=== PATIENT | male | born 2000 | race Caucasian/White ===

== ENCOUNTER 2019-11-11 22:16 | Emergency (ER) | payer BC, SELFPAY ==
[2019-11-11 22:33] VITALS: BP 130/83; PULSE 72; RESP 20; TEMP 36.9; O2SAT 100
--- NOTE | 2019-11-11 22:43 | ED.WOUNDLAC ---
HPI - Wound/Laceration General Chief Complaint: Wound/Laceration Stated Complaint: laceration on R hand Source: patient Mode of arrival: ambulatory Limitations: no limitations History of Present Illness HPI narrative: Patient presents with some laceration to his right 5th some anterior finger approximately 1.5cm in length non gaping well-approximated currently no bleeding occurred earlier today while he was feeding is hamster in the hamster tried to pull his hand and away and caught on glass the fish tank causing a laceration to his hand, 5th finger on his right hand Onset (ago): hour(s) Location: other (right 5th finger) Place: home Patient tetanus UTD: Yes Context: accidental Associated symptoms: none Related Data Home Medications Medication Instructions Recorded Confirmed No Home Medications 11/11/19 11/11/19 Allergies Allergy/AdvReac Type Severity Reaction Status Date / Time No Known Allergies Allergy Verified 11/11/19 22:46 Review of Systems Review of Systems: All systems reviewed & are unremarkable except as noted in HPI and below PMFSH Past Medical History Medical History Patient denies medical problems Exam Const: General: no acute distress and alert Orientation/consciousness: patient oriented x3 HENMT: Head: normal to inspection Eyes: Conjunctivae: conjunctivae normal Pupils: Equal, round and reactive pupils present Neck: Neck: normal visual inspection and no lymphadenopathy Chest: Chest palpation & inspection: normal inspection of the chest Resp: Effort & Inspection: normal respiratory effort Auscultation: clear to auscultation bilaterally Cardio: Rate: regular rate Rhythm: regular rhythm GI: GI Palp: Yes Soft to palpation Skin: Other: 1 1/2 cm lac well approximated his right 5th anterior finger Extrem: Right lower extremity: normal to inspection Course Vital Signs Vital signs: Vital Signs Temperature 36.9 C 11/11/19 22:33 Pulse Rate 72 11/11/19 22:33 Respiratory Rate 20 11/11/19 22:33 Blood Pressure 130/83 11/11/19 22:33 Pulse Oximetry 100 11/11/19 22:33 Temperature 36.9 C 11/11/19 22:33 Pulse Rate 72 11/11/19 22:33 Respiratory Rate 20 11/11/19 22:33 Blood Pressure 130/83 11/11/19 22:33 Pulse Oximetry 100 11/11/19 22:33 Procedures Laceration Laceration 1: Date: 11/11/19 Time: 22:47 Site: hand Side (If applicable): right Size (cm): 1.5 Description: linear ====== Skin Level ====== Skin layer closed with: dermabond ====== Subcutaneous Layer ====== ====== Muscle Layer ====== ====== Tendon Layer ====== Critical Care Time Critical Care Time Critical Care Time: No Discharge Plan Discharge Clinical Impression: Laceration Patient Disposition: Home, Self-Care Condition: Stable Instructions: Antibiotic Form, Skin Adhesive Care (ED) Additional Instructions: follow-up with primary care physician if symptoms persist or worsen. Prescriptions: No Action No Home Medications RF: 0 Follow-up/Referrals: Ortega,Bandar Juarez MD [Primary Care Provider] - Time of Disposition: 22:48
[2019-11-11 22:48] VITALS: RESP 14
== END 2019-11-11 22:55 | disposition home or self-care (01) ==
PROVIDERS: Emergency Provider Emergency Medicine; PCP Family Medicine
DX: S61.411A Laceration without foreign body of right hand, initial encounter (principal); W25.XXXA Contact with sharp glass, initial encounter
CPT/HCPCS: 12001; 99282

== ENCOUNTER 2020-05-23 20:37 | Emergency (ER) | payer SELFPAY ==
--- NOTE | ~2020-05-23 | CT_ITS ---
EXAMINATION: CT brain wo con DATE: 05/23/2020 21:51 INDICATION: Headache, altered sensorium. Generalized headache. Right forehead laceration. TECHNIQUE: Computed tomography (CT) of the head was performed without intravenous contrast. The mA wa s adjusted according to patient size. Iterative reconstruction technique was employed. Exam dose: 60 5.33 mGy-cm total exam DLP. COMPARISON: 02/18/2012 CT head FINDINGS: No intracranial mass lesion or hemorrhage or cerebrovascular accident. No midline shift or mass effect. Normal ventricular size. No subdural or epidural hematoma. No fracture or bone destruction of the cranial vault. There is mild mucoperiosteal thickening of the left and right sphenoid sinuses and patchy opacificati on of ethmoid air cells bilaterally. Included mastoid air cells and paranasal sinuses are otherwise u nremarkable. IMPRESSION: Soft tissue thickening of the sphenoid and ethmoid sinuses No significant intracranial abnormality Reviewed, dictated and finalized at [facility] Reviewed, dictated and finalized at [facility] [employer] [employer]
[2020-05-23 20:37] VITALS: BP 137/90; PULSE 65; RESP 16; TEMP 36.9; O2SAT 100
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
--- NOTE | 2020-05-23 21:46 | PC.NURSE ---
PT REFUSED ORDERED TYLENOL, STATES HE HAS 0 PAIN
[2020-05-23 22:25] VITALS: BP 120/71; PULSE 64; RESP 15; O2SAT 100
== END 2020-05-23 22:28 | disposition home or self-care (01) ==
PROVIDERS: Emergency Provider Emergency Medicine; PCP Family Medicine
DX: S01.81XA Laceration without foreign body of other part of head, initial encounter (principal); V89.2XXA Person injured in unspecified motor-vehicle accident, traffic, initial encounter
CPT/HCPCS: 70450; 99282; 99284

== ENCOUNTER 2022-10-02 14:56 | Emergency (ER) | payer OTHER, SELFPAY ==
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
[2022-10-02 14:56] VITALS: BP 126/86; PULSE 82; RESP 16; TEMP 37.1; O2SAT 100
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
[2022-10-02 16:10] VITALS: BP 118/67; PULSE 65; RESP 16; TEMP 36.8; O2SAT 98
== END 2022-10-02 16:25 | disposition home or self-care (01) ==
PROVIDERS: Emergency Provider Internal Medicine Critical Care Medicine; PCP Family Medicine
DX: S73.102A Unspecified sprain of left hip, initial encounter (principal); V59.50XA Passenger in pick-up truck or van injured in collision with unspecified motor vehicles in traffic accident, initial encounter; Y92.410 Unspecified street and highway as the place of occurrence of the external cause
CPT/HCPCS: 73502; 99283

== ENCOUNTER 2024-09-10 12:16 | Emergency (ER) | payer SELFPAY ==
[2024-09-10 12:16] VITALS: BP 146/77; PULSE 86; RESP 18; TEMP 36.9; O2SAT 99
--- NOTE | 2024-09-10 12:21 | ED.URI ---
HPI - URI/Sore Throat General Chief Complaint: Upper Respiratory Infection Stated Complaint: uri Time Seen by Provider: 09/10/24 12:18 Source: patient Mode of arrival: ambulatory Limitations: no limitations History of Present Illness HPI Narrative: patient is a 24-year-old male with a continuous cough and recurrent chest congestion with some chest pains and shortness of breath over the past 2 weeks. He is concerned about having pneumonia. His father recently had pneumonia. MD elicited complaint: cough and other ( Chest congestion) Pertinent past history: other ( none) Onset (ago): week(s) ( 2) Consistency: constant Severity: mild Pain scale (0-10): 2 Description of mucous: clear Able to tolerate fluids by mouth: Yes Exacerbating factors: nothing Relieving factors: nothing Context: sick contacts Associated symptoms: cough, chest pain and shortness of breath Treatments prior to arrival: none Related Data Allergies Allergy/AdvReac Type Severity Reaction Status Date / Time No Known Allergies Allergy Verified 09/10/24 12:51 Review of Systems Review of Systems: All systems reviewed & are unremarkable except as noted in HPI and below Constitutional: Constitutional: Reports no additional constitutional complaints Eyes: Eyes: Reports no additional eye complaints ENT: Reports system reviewed and no additional complaints, except as documented Cardiovascular: Cardiovascular: Reports no additional cardiovascular complaints Respiratory: Respiratory: Reports no additional respiratory complaints Gastrointestinal: Gastrointestinal: Reports no additional gastrointestinal complaints Genitourinary: Genitourinary: Reports no additional male genitourinary complaints Musculoskeletal: Musculoskeletal: Reports no additional musculoskeletal complaints Integumentary/Breasts: Skin/Breast: Reports system reviewed and no additional complaints, except as docu Neurologic: Reports system reviewed and no additional complaints, except as documented Psychiatric: Psychiatric: Reports no additional psychiatric complaints Endocrine: Endocrine: Reports no additional endocrine complaints Hematologic/Lymphatic: Hematologic/Lymphatic: Reports no additional hematologic/lymphatic complaints Allergic/Immunologic: Allergic/Immunologic: Reports no additional allergic/immunologic complaints PMFSH Past Medical History Medical History Patient denies medical problems Exam Const: General: healthy appearing Nutritional Appearance: well nourished Orientation/consciousness: patient oriented x3 HENMT: Head: normal to inspection Ears: external ears normal Face/Nose/Sinus: Normal external nose present Eyes: Conjunctivae: conjunctivae normal Pupils: Equal, round and reactive pupils present EOM: EOMs intact bilaterally Neck: Neck: normal visual inspection Chest: Chest palpation & inspection: normal inspection of the chest Resp: Effort & Inspection: normal respiratory effort, not labored, no retractions, not tachypneic and no use of accessory muscles Auscultation: clear to auscultation bilaterally, no crackles, no rales, no rhonchi, no wheezes, breath sounds present and lung sounds not diminished Cardio: Rate: regular rate Rhythm: regular rhythm Heart sounds: no murmurs GI: Inspection: non-distended GI Palp: Yes Soft to palpation and No Tenderness to palpation present (GI) Auscultation: normal bowel sounds : General: Yes bladder normal to palpation Back/Spine/Pelvis: Back: no CVA tenderness Skin: General skin exam: normal color Rashes: no rashes Wounds: no wounds Neuro: General: patient oriented x3, moves all extremities, no meningeal signs, no focal motor deficits and CN's II-XI intact bilaterally Cranial nerves: Yes Nystagmus not present Speech: normal speech Gait exam (Neuro): Normal gait present Extrem: General: normal to inspection Psych: Mental Status: mental status grossly normal Affect: normal affect Attitude: cooperative Course Vital Signs Vital signs: Vital Signs Temperature 36.9 C 09/10/24 12:16 Pulse Rate 86 09/10/24 12:16 Respiratory Rate 18 09/10/24 12:16 Blood Pressure 146/77 H 09/10/24 12:16 Pulse Oximetry 99 09/10/24 12:16 Oxygen Delivery Room Air 09/10/24 12:16 Temperature 36.9 C 09/10/24 12:16 Pulse Rate 86 09/10/24 12:16 Respiratory Rate 18 09/10/24 12:16 Blood Pressure 146/77 H 09/10/24 12:16 Pulse Oximetry 99 09/10/24 12:16 Oxygen Delivery Room Air 09/10/24 12:16 MDM - URI/Sore Throat MDM Narrative Medical decision making narrative: patient is a 24-year-old male with 2 weeks of a cough and congestion. We will not do a COVID swab at this time due to the fact that it has been 2 weeks. Otherwise we will treat for bronchitis at this time with appropriate medications. Imaging Data Attestation: I personally reviewed and interpreted this imaging study as follows: Radiologist's impression: Chest x-rays negative for acute process Discharge Plan Discharge Clinical Impression: Bronchitis Patient Disposition: Home, Self-Care Condition: Stable Instructions: Antibiotic Form, Acute Bronchitis (ED) Patient Language: Italian Prescriptions: New albuterol sulfate [Ventolin HFA] 90 mcg/actuation HFA aerosol inhaler 1 inh inhalation QID PRN (Reason: shortness of breath or wheezing) Qty: 6.7 0RF azithromycin 250 mg tablet See Rx Instructions .ROUTE .COMPLEX Qty: 6 0RF Rx Instructions: For 250 mg dose pack: take 500 mg today (day 1), then 250 mg for 4 days (days 2-5) prednisone 20 mg tablet 40 mg PO DAILY 3 Days Qty: 6 0RF No Action meloxicam 15 mg tablet 15 mg PO DAILY Qty: 10 0RF Follow-up/Referrals: Ortega,Bandar Juarez MD [Primary Care Provider] - Time of Disposition: 13:11
== END 2024-09-10 13:15 | disposition home or self-care (01) ==
PROVIDERS: Emergency Provider Emergency Medicine; PCP Family Medicine
DX: J40 Bronchitis, not specified as acute or chronic (principal)
CPT/HCPCS: 71046; 99283